=== PATIENT | female | born 1975 | race Caucasian/White ===

== ENCOUNTER → 2017-06-06 | Outpatient (REF) | payer SELFPAY, OTHER ==
[2017-06-06 13:44] LABS: INFLUENZA A AMPLIFICATION NEGATIVE (NEGATIVE); INFLUENZA B AMPLIFICATION POSITIVE (NEGATIVE)
== END ==
LOC: M LAB REF 12:51
DX: J11.1 Influenza due to unidentified influenza virus with other respiratory manifestations (principal)

== ENCOUNTER 2018-08-12 08:29 | Day surgery (SDC) | payer BC, OTHER ==
[~2018-08-12] VITALS: Ht 167.6 cm; Wt 72.6 kg
[~2018-08-12 08:29] MED LIST: LEVOTAB10 PO; LR 1,000 ML IV ONE; MULTCAP PO; VENTAER INH
[2018-08-12] MEDS ORDERED: ceFAZolin 1GM INJ (J0690 PER 500MG) As Ordered ONE (08:59)
[2018-08-12] MEDS ORDERED: LIDOCAINE 2% INJ 100 MG/5 ML SDV (FOR ANES.) As Ordered ONE (09:12)
[2018-08-12] MEDS ORDERED: fentaNYL 100 MCG/2 ML INJECTION (J3010) As Ordered ONE (09:12)
[2018-08-12] MEDS ORDERED: PROPOFOL 200 MG/20 ML VIAL As Ordered ONE (09:12)
[2018-08-12] MEDS ORDERED: MIDAZOLAM INJ 2 MG/2 ML VIAL (J2250) As Ordered ONE (09:13)
[2018-08-12 09:17] LABS: URINE PREG TEST NEGATIVE (NEGATIVE)
[2018-08-12] MEDS ORDERED: BACITRACIN OINT 30GM As Ordered ONE ×2 (09:49→16:00)
[2018-08-12] MEDS ORDERED: LIDOCAINE W/EPINEPHRINE 1% 20ML VIAL As Ordered ONE (09:49)
[2018-08-12] MEDS ORDERED: ONDANSETRON 4MG/2ML VIAL (J2405) As Ordered ONE (10:27)
[2018-08-12] MEDS ORDERED: dexameTHASONE 4 MG/ML 1ML VIAL (J1100) As Ordered ONE (10:27)
[2018-08-12] MEDS ORDERED: KETOROLAC 60 MG/2 ML VIAL (J1885) As Ordered ONE (10:39)
[2018-08-12] MEDS ORDERED: ceFAZolin SOD 1 GM in D5W MINI-BAG PLUS 50 ML IV ONE (11:00)
--- NOTE | 2018-08-12 11:01 | POST-OPPD ---
Postoperative Procedure Note Date Of Procedure: Aug 12, 2018 PREOPERATIVE DIAGNOSIS: Left nose mass POSTOPERATIVE DIAGNOSIS: same FINDINGS: Left nose cyst PROCEDURE: Excision left nose mass SURGEON: Dr Moralez ANESTHESIA: General SPECIMENS: Left nose mass and skin ESTIMATED BLOOD LOSS: 3 cc REPLACED: none DRAINS: none COMPLICATIONS: none POSTOPERATIVE CONDITION: stable JEANINE MORALEZ DO Aug 12, 2018 11:01
[2018-08-12] MEDS ORDERED: TYLETAB14 PO (11:03)
[2018-08-12] MEDS ORDERED: fentaNYL 100 MCG/2 ML INJECTION (J3010) IV PRN (11:15)
[2018-08-12] MEDS ORDERED: ONDANSETRON 4MG/2ML VIAL (J2405) IV PRN (11:15)
[2018-08-12] MEDS ORDERED: LR 1,000 ML IV SCH (11:15)
[2018-08-12] MEDS ORDERED: PERCOCET 5MG/325MG TAB PO PRN (11:15)
[2018-08-12] MEDS ORDERED: ACETAMINOPHEN 325 MG TAB As Ordered ONE (11:27)
[2018-08-12 11:45] VITALS: BP 124/79
[2018-08-12] MEDS ORDERED: ACETAMINOPHEN TAB 650MG DOSE (2X325MG) PO PRN (11:45)
--- NOTE | 2018-08-14 12:48 | RO ---
DATE OF PROCEDURE: 08/12/2018 PREOPERATIVE DIAGNOSIS: Left nose mass. POSTOPERATIVE DIAGNOSIS: Left nose mass. PROCEDURE: Excision left nose mass. ATTENDING SURGEON: Rosa Bustamante DO RN OFFICE: ANESTHESIA: General. SPECIMENS: Left nose mass and skin. BLOOD LOSS: 3 mL. REPLACEMENT: None. DRAINS: None. No complications. DESCRIPTION OF PROCEDURE: This is a 43-year-old female who has a slowly growing mass on her nasolabial crease on the left side. Recently, the mass became so big, now it is pressing on her nose, interfering with breathing and, when she is wearing glasses, she can feel pressure on her left nostril. Patient is recommended to have it removed. On exam, it appears like a free floating mass, 3 cm in diameter, and consistent with a cyst. Patient scheduled for excision. All risks and benefits and alternatives discussed at length, and she is ready to proceed. She was marked in preoperative holding and brought into the operating room. Placed in supine position. Preoperative antibiotics were given. Sequentials placed on the lower calves, and general anesthesia was induced. She was prepped and draped in the usual sterile fashion. Carried out incision, which was going along nasolabial fold using a #10 blade, and then sharp dissection was carried out until the wall of the cyst was identified. It was fairly thick with white thick material inside of the cyst. The cyst carefully was excised in entirety and removed. There was a deep cavity from where the cyst was, which was irrigated. No active bleeding. Then, the wound was closed in layers. Excess skin with a punctum was excised and sent for pathology as well, and good approximation was obtained with layered closure with #5-0 Vicryl in the muscular layer and #5-0 Monocryl in subcu and a dermal stitch with #5-0 plain gut. Patient was extubated in the operating room. Steri-Strips were applied. She was transferred to the recovery room in stable condition.
== END 2018-08-12 12:14 | disposition home or self-care (01) ==
LOC: M SDC 08:29
PROVIDERS: ATTEND Plastic Surgery Surgery of the Hand
DX: L72.0 Epidermal cyst (principal); J45.990 Exercise induced bronchospasm; F32.9 Major depressive disorder, single episode, unspecified; J30.89 Other allergic rhinitis; Z79.899 Other long term (current) drug therapy
CPT/HCPCS: 11442; 84703; 88307; J0690; J1100; J1885; J2250; J2405; J3010

== ENCOUNTER → 2019-05-16 | Outpatient (CLI) | payer BC, OTHER ==
[~2019-05-16] MED LIST changes: -LR 1,000 ML IV ONE; +TYLETAB14 PO
--- NOTE | 2019-05-16 12:28 | REPMRS ---
Patient History The patient states she had a clinical breast exam in 04/2019. Patient is nulliparous. No known family history of cancer. No Hormone Replacement Therapy 3D TOMOSYNTHESIS WAS PERFORMED. [facility]%. Digital Woman Screen Mammo: May 16, 2019 - Exam #: [id number] Bilateral CC and MLO view(s) were taken. Technologist: Odessa Friedman, Technologist Prior study comparison: 2018, bilateral digital mammo screening bilat, performed at [facility]. FINDINGS: The breast tissue is heterogeneously dense. This may lower the sensitivity of mammography. There has been no change in the appearance of the mammogram from the prior studies. There is a moderate amount of residual fibroglandular tissue which is fairly symmetric. There is no interval development of dominant mass, areas of architectural distortion, or clustered microcalcification typical of malignancy. Assessment: BI-RADS/ACR category 1 mammogram. Negative Mammogram. Recommendation Routine screening mammogram in 1 year (for women over age 40). This mammogram was interpreted with the aid of an FDA-approved computer-aided dectection system. Electronically Signed By: Alan Howell MD 05/16/19 [id number]
== END ==
LOC: M WHC 09:29
PROVIDERS: ATTEND Nurse Practitioner Family
DX: Z12.31 Encounter for screening mammogram for malignant neoplasm of breast (principal)

== ENCOUNTER → 2019-05-16 | Outpatient (REF) | payer BC | LOC: M SFHCWAGY 13:33 | PROVIDERS: ATTEND Nurse Practitioner Family | DX: Z12.4 Encounter for screening for malignant neoplasm of cervix (principal) | CPT/HCPCS: 87624; G0123 ==

== ENCOUNTER → 2020-07-30 | Outpatient (CLI) | payer BC ==
--- NOTE | 2020-07-30 13:59 | REPMRS ---
Patient History The patient states she had a clinical breast exam in 2020. No known family history of cancer. No Hormone Replacement Therapy Digital Woman Screen Mammo: July 30, 2020 - Exam #: [id number] Bilateral CC and MLO view(s) were taken. Technologist: Cathy Holden, Technologist Prior study comparison: May 16, 2019, bilateral digital woman screen mammo performed at [facility]. March 17, 2017, bilateral digital mammo screening bilat, performed at [facility]. FINDINGS: The breast tissue is heterogeneously dense. This may lower the sensitivity of mammography. The Vol[employer] volumetric breast density category is: C. There is a moderate amount of heterogeneously dense fibroglandular tissue which is fairly symmetric. There is no interval development of dominant mass, architectural distortion, or grouped microcalcification typical of malignancy. There has been no change in the appearance of the mammogram from the prior studies. 3-D tomosynthesis shows no additional findings. Assessment: BI-RADS/ACR category 1 mammogram. Negative Mammogram. Recommendation Routine screening mammogram of both breasts in 1 year (for women over age 40). This patient's [facility] Lifetime Breast Cancer RIsk is estimated at 11.7 %. This mammogram was interpreted with the aid of an FDA-approved computer-aided dectection system. Electronically Signed By: Colin Ceja MD 07/30/20 [id number]
== END ==
LOC: M WHC 11:51
PROVIDERS: ATTEND Family Medicine
DX: Z12.31 Encounter for screening mammogram for malignant neoplasm of breast (principal)

== ENCOUNTER → 2021-10-28 | Outpatient (CLI) | payer BC, OTHER | LOC: M WHC 15:35 | PROVIDERS: ATTEND Family Medicine | DX: Z12.31 Encounter for screening mammogram for malignant neoplasm of breast (principal) ==

== ENCOUNTER → 2022-05-19 | Outpatient (REF) | payer BC, OTHER | LOC: M SFHCWAGY 13:43 | PROVIDERS: ATTEND Nurse Practitioner Family | DX: Z12.4 Encounter for screening for malignant neoplasm of cervix (principal) | CPT/HCPCS: 87624; G0123 ==

== ENCOUNTER → 2022-11-10 | Outpatient (CLI) | payer BC, OTHER | LOC: M WHC 14:50 | PROVIDERS: ATTEND Family Medicine | DX: Z12.31 Encounter for screening mammogram for malignant neoplasm of breast (principal) ==

== ENCOUNTER → 2023-08-09 | Outpatient (CLI) | payer BC ==
[2023-08-09 10:55] LABS: THYROID STIMULATING HORMONE 1.879 uIU/ML (0.55-4.78)
[2023-08-09 10:56] LABS: FREE T4 0.91 NG/DL (0.89-1.76)
[2023-08-10 12:08] LABS: THRYOGLOBULIN ANTIBODIES (ATA) < 1.0 IU/mL (0.0-0.9); THYROGLOBULIN QUANTITATIVE 13.7 ng/mL (1.5-38.5)
== END ==
LOC: M PLAIMG 07:32
PROVIDERS: ATTEND Registered Nurse
DX: M25.532 Pain in left wrist (principal); M25.561 Pain in right knee; R63.5 Abnormal weight gain

== ENCOUNTER → 2023-12-06 | Outpatient (CLI) | payer BC | LOC: M WHC 14:22 | PROVIDERS: ATTEND Nurse Practitioner Family | DX: Z12.31 Encounter for screening mammogram for malignant neoplasm of breast (principal) ==

== ENCOUNTER → 2023-12-06 | Outpatient (REF) | payer BC | LOC: M SFHCWAGY 10:24 | PROVIDERS: ATTEND Nurse Practitioner Family | DX: Z12.4 Encounter for screening for malignant neoplasm of cervix (principal); Z01.419 Encounter for gynecological examination (general) (routine) without abnormal findings; Z77.9 Other contact with and (suspected) exposures hazardous to health ==

== ENCOUNTER → 2023-12-07 | Outpatient (CLI) | payer BC ==
[2023-12-07 10:35] LABS: BASO # 0.1 10^3/uL (0.0-0.2); BASO % 1.1 % (0.0-1.0); EOS # 0.2 10^3/uL (0.0-0.5); HEMATOCRIT 38.4 % (36.0-47.0); HEMOGLOBIN 12.7 g/dl (12.0-15.5); LYMPH # 1.5 10^3/uL (1.5-5.0); LYMPH % 27.6 % (24.0-44.0); MEAN CORPUSCULAR HEMOGLOBIN 31.7 pg (27.0-33.0); MEAN CORPUSCULAR HGB CONC 33.1 g/dl (32.0-36.5); MEAN CORPUSCULAR VOLUME 95.8 fl (80.0-96.0); MONO # 0.3 10^3/uL (0.0-0.8); MONO % 5.7 % (2.0-8.0); NEUTROPHILS # 3.3 10^3/uL (1.5-8.5); NEUTROPHILS % 62.2 % (36.0-66.0); PLATELET COUNT, AUTOMATED 213 10^3/uL (150-450); RED BLOOD COUNT 4.01 10^6/uL (4.00-5.40); WHITE BLOOD COUNT 5.3 10^3/uL (4.0-10.0)
[2023-12-07 11:01] LABS: ALBUMIN 3.8 G/DL (3.2-5.2); ALKALINE PHOSPHATASE 65 U/L (46-116); ALT/SGPT 28 U/L (7.0-40); AST/SGOT 21 U/L (<34); BILIRUBIN,TOTAL 0.8 MG/DL (0.3-1.2); BLOOD UREA NITROGEN 9 MG/DL (9-23); CALCIUM LEVEL 9.4 MG/DL (8.5-10.1); CARBON DIOXIDE LEVEL 31 MMOL/L (20-31); CHLORIDE LEVEL 107 MMOL/L (98-107); CREATININE FOR GFR 0.82 MG/DL (0.55-1.30); GLOMERULAR FILTRATION RATE > 60.0 (>58); GLUCOSE, FASTING 84 MG/DL (60-100); IRON (FE) 83 UG/DL (50-170); PERCENT SATURATION 26.3 % (13.2-45.0); POTASSIUM SERUM 4.2 MMOL/L (3.5-5.1); SODIUM LEVEL 140 MMOL/L (136-145); TOTAL 25(OH) VITAMIN D 36.9 NG/ML (20.0-100.0); TOTAL IRON BINDING CAPACITY 316 UG/DL (250-425); TOTAL PROTEIN 6.9 G/DL (5.7-8.2); VITAMIN B12 LEVEL 630 PG/ML (211-911)
[2023-12-07 11:02] LABS: FERRITIN 28.9 NG/ML (7.3-270.7); FOLATE > 24.0 NG/ML (>5.4)
[2023-12-07 11:03] LABS: FREE T4 0.97 NG/DL (0.89-1.76)
[2023-12-07 11:05] LABS: THYROID PEROXIDASE ANTIBODY < 28.0 U/ML (<60.0)
[2023-12-07 11:06] LABS: FREE T3 3.6 PG/ML (2.3-4.2)
== END ==
LOC: M PLALAB 08:44
PROVIDERS: ATTEND Nurse Practitioner Family
DX: R53.83 Other fatigue (principal)

== ENCOUNTER → 2025-03-27 | Outpatient (CLI) | payer BC | LOC: M WHC 14:56 | PROVIDERS: ATTEND Physician Assistant | DX: Z12.31 Encounter for screening mammogram for malignant neoplasm of breast (principal) ==

== ENCOUNTER → 2025-03-27 | Outpatient (REF) | payer BC, OTHER ==
[2025-03-31 13:01] LABS: HPV APTIMA Not Detected (Not Detected)
== END ==
LOC: M SFHCWAGY 17:13
PROVIDERS: ATTEND Physician Assistant
DX: Z12.4 Encounter for screening for malignant neoplasm of cervix (principal); B37.9 Candidiasis, unspecified
CPT/HCPCS: 87624; G0123